=== PATIENT | female | born 1965 | race Caucasian/White ===

== ENCOUNTER 2018-12-03 19:28 | Emergency (ER) | payer OTHER ==
[~2018-12-03] VITALS: Ht 170.2 cm; Wt 117.9 kg
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
[2018-12-03] MEDS ORDERED: ONDANSETRON 4 MG/2 ML VIAL ONE (20:07)
[2018-12-03] MEDS ORDERED: MORPHINE SULFATE 4 MG/1 ML DISP.SYRIN ONE (20:07)
[2018-12-03] MEDS: MORPHINE SULFATE 4 MG/1 ML DISP.SYRIN IM ONE (20:11)
[2018-12-03] MEDS: ONDANSETRON 4 MG/2 ML VIAL IM ONE (20:12)
--- NOTE | 2018-12-03 20:14 | NUR ---
Pt went down to radiology dept for CT scan + xrays.
--- NOTE | 2018-12-03 20:38 | NUR ---
Pt back from radiology dept placed in room 3A appears in no apparent distress.
--- NOTE | 2018-12-03 20:51 | NUR ---
HORACIO ROSE at bedside for update. C-spine precautions cleared by Dr. Browne. Pt able to move all extremities.
[2018-12-03] MEDS ORDERED: ONDANSETRON ODT 4 MG TAB.RAPDIS ONE (22:09)
[2018-12-03] MEDS: ONDANSETRON ODT 4 MG TAB.RAPDIS SL ONE (22:10)
--- NOTE | 2018-12-03 22:30 | NUR ---
Patient discharged to home in stable conditon. Written and verbal after care instructions given. Patient verbalizes understanding of instructions. Pt ambulates out of ER in steady gait. Pt states she has someone to drive her home. Pt states she feels much better.
[2018-12-03 22:44] VITALS: BP 144/88
== END 2018-12-03 22:45 | disposition home or self-care (01) ==
LOC: ER 19:30
DX: S13.4XXA Sprain of ligaments of cervical spine, initial encounter (principal); S33.5XXA Sprain of ligaments of lumbar spine, initial encounter; S20.211A Contusion of right front wall of thorax, initial encounter; V43.52XA Car driver injured in collision with other type car in traffic accident, initial encounter; Y93.89 Activity, other specified; Y92.410 Unspecified street and highway as the place of occurrence of the external cause; Y99.8 Other external cause status
CPT/HCPCS: 71101; 72125; 96372 ×2; 99284; J2270; J2405; A4663; Q0162

== ENCOUNTER 2019-02-11 20:18 | Emergency (ER) | payer OTHER ==
[~2019-02-11] VITALS: Ht 170.2 cm; Wt 108.9 kg
--- NOTE | 2019-02-11 20:32 | NUR ---
Dr. Wilkerson at bedside for MSE.
[2019-02-11] MEDS ORDERED: ONDANSETRON ODT 4 MG TAB.RAPDIS SL ONE (20:45)
[2019-02-11] MEDS ORDERED: IBUPROFEN 600 MG TABLET PO ONE (20:45)
[2019-02-11] MEDS ORDERED: ACETAMINOPHEN 325 MG TABLET PO ONE (20:45)
[2019-02-11] MEDS ORDERED: ONDANSETRON ODT 4 MG TAB.RAPDIS ONE ×2 (20:46→20:47)
[2019-02-11] MEDS ORDERED: ACETAMINOPHEN ES 500 MG TABLET ONE (20:46)
[2019-02-11] MEDS ORDERED: IBUPROFEN 600 MG TABLET ONE (20:47)
--- NOTE | 2019-02-11 22:00 | NUR ---
Patient discharged to home in stable conditon. Written and verbal after care instructions given. Patient verbalizes understanding of instructions. Pt ambulated out of ER with steady gait, no acute signs of distress, VSS, all belongings taken.
[2019-02-11 22:14] VITALS: BP 149/101
== END 2019-02-11 22:14 | disposition home or self-care (01) ==
LOC: ER 20:18
DX: F07.81 Postconcussional syndrome (principal); M54.32 Sciatica, left side; R11.2 Nausea with vomiting, unspecified; R07.89 Other chest pain; V89.2XXA Person injured in unspecified motor-vehicle accident, traffic, initial encounter; Y93.89 Activity, other specified; Y92.89 Other specified places as the place of occurrence of the external cause; Y99.8 Other external cause status
CPT/HCPCS: A4663; A9150; Q0162

== ENCOUNTER 2023-03-30 18:24 | Emergency (ER) | payer MEDICAID, OTHER ==
[~2023-03-30] VITALS: Ht 170.2 cm; Wt 113.4 kg
[2023-03-30] MEDS ORDERED: FLUT16SP16 BNOSTRILS (18:51)
[2023-03-30 19:27] LABS: HEMATOCRIT 38.2 % (31.2-41.9); MEAN CORPUSCULAR HEMOGLOBIN 31.6 uug (24.7-32.8); MEAN CORPUSCULAR VOLUME 91.7 fL (75.5-95.3); PLATELET COUNT (AUTO) 283 K/uL (179-408)
[2023-03-30 19:34] LABS: CREATININE 0.8 mg/dL (0.6-1.3); POTASSIUM 3.8 mmol/L (3.5-5.1)
[2023-03-30 19:47] LABS: BILIRUBIN,TOTAL 0.3 mg/dL (0.2-1.0)
[2023-03-30 19:51] LABS: THYROID STIMULATING HORMONE 2.588 mIU/mL (0.358-3.740)
--- NOTE | 2023-03-30 20:14 | NUR ---
Patient taken to CT via [facility] accompanied by
[2023-03-30 20:15] LABS: *BILIRUBIN,URIN NEGATIVE (NEGATIVE); *CLARITY,URINE CLEAR (CLEAR); *COLOR,URINE YELLOW (YELLOW); *KETONES,URINE NEGATIVE (NEGATIVE); *UROBILINOGEN,URINE 0.2 E.U./dl (NORMAL); LEUKOCYTE ESTERASE ,URINE TRACE (NEGATIVE); NITRITE, URINE NEGATIVE (NEGATIVE); UGLUCOSE NEGATIVE (NEGATIVE)
[2023-03-30 20:24] LABS: *BLOOD, URINE TRACE (NEGATIVE)
[2023-03-30 20:51] LABS: *URINE HCG, QUAL NEG (NEGATIVE)
[2023-03-30] MEDS ORDERED: METOCLOPRAMIDE HCL 10 MG TABLET PO ONE (21:15)
[2023-03-30] MEDS ORDERED: KETOROLAC TROMETHAMINE 60 MG INJ IM ONE (21:15)
[2023-03-30] MEDS ORDERED: ACETAMINOPHEN 325 MG TABLET PO ONE (21:15)
[2023-03-30] MEDS ORDERED: KETOROLAC TROMETHAMINE 30 MG INJ ONE (21:21)
[2023-03-30] MEDS ORDERED: METOCLOPRAMIDE HCL 10 MG TABLET ONE (21:21)
[2023-03-30] MEDS ORDERED: ACETAMINOPHEN 325 MG TABLET ONE (21:21)
[2023-03-30] MEDS ORDERED: diphenhydrAMINE 50 MG/1 ML VIAL IV ONE (22:15)
[2023-03-30] MEDS ORDERED: IV NORMAL SALINE 500 ML BAG IV ONE (22:15)
[2023-03-30] MEDS ORDERED: PROCHLORPERAZINE EDISYLATE 10 MG/2 ML VIAL IV ONE (22:15)
[2023-03-30] MEDS ORDERED: DEXAMETHASONE SOD PHOSPHATE 4 MG INJ IV ONE (22:15)
[2023-03-30] MEDS ORDERED: DEXAMETHASONE SOD PHOSPHATE 4 MG INJ ONE (22:39)
[2023-03-30] MEDS ORDERED: diphenhydrAMINE 50 MG/1 ML VIAL ONE (22:40)
[2023-03-30] MEDS ORDERED: PROCHLORPERAZINE EDISYLATE 10 MG/2 ML VIAL ONE (22:40)
[2023-03-30 22:46] LABS: BACTERIA,URINE FEW /HPF (NONE SEEN); SQUAMOUS EPITHELIAL CELL,UR FEW /HPF (NONE SEEN)
--- NOTE | 2023-03-30 22:51 | NUR ---
Patient resting comfortably in bed, requested food. Patient given 2 turkey sandwhiches. No signs of distress noted.
[2023-03-30] MEDS ORDERED: MAGNESIUM SULFATE/D5W 200 ML ONE (23:14)
[2023-03-30] MEDS: MAGNESIUM SULFATE/D5W 100 ML IV SCH ×2 (23:17→23:48)
--- NOTE | 2023-03-31 01:14 | NUR ---
Patient discharged to home in stable condition. Written and verbal after care instructions given. Patient verbalizes understanding of instructions. Stressed follow up or return to ER for worsening s/s.
[2023-03-31 01:28] VITALS: BP 130/75
== END 2023-03-31 01:28 | disposition home or self-care (01) ==
LOC: ER 18:24
DX: I10 Essential (primary) hypertension (principal); R07.89 Other chest pain; Z88.1 Allergy status to other antibiotic agents; Z79.899 Other long term (current) drug therapy
CPT/HCPCS: 99285; 74176; 96365; 96375; 71045; 96361; 96366; 80053; 81001; 84703; 83880; 84439; 83690; 84443; 85025; 84484; 36415; 93005; 96372; J1100; J1200; J1885; J3475; J0780; J7040; A4663; J8597

== ENCOUNTER 2024-06-03 08:20 | Emergency (ER) | payer MEDICAID ==
[~2024-06-03] VITALS: Ht 170.2 cm; Wt 122.5 kg
[~2024-06-03 08:20] MED LIST: FLUT16SP16 BNOSTRILS
[2024-06-03 09:15] LABS: BASOPHILS % (AUTO) 0.5 % (0.0-2.0); EOSINOPHILS # (AUTO) 0.1 K/uL (0.0-0.7); EOSINOPHILS % (AUTO) 0.9 % (0.0-7.0); HEMATOCRIT 39.5 % (31.2-41.9); HEMOGLOBIN 13.1 g/dL (10.9-14.3); LYMPHOCYTES # (AUTO) 0.4 K/uL (0.8-4.8); LYMPHOCYTES % (AUTO) 7.2 % (20.5-51.5); MEAN CORPUSCULAR HEMOGLOBIN 30.2 uug (24.7-32.8); MEAN CORPUSCULAR HGB CONC 33 g/dL (32.3-35.6); MONOCYTES # (AUTO) 0.4 K/uL (0.1-1.30); NEUTROPHILS # (AUTO) 4.7 K/uL (1.8-8.9); NEUTROPHILS % (AUTO) 84.4 % (38.5-71.5); PLATELET COUNT (AUTO) 334 K/uL (179-408); RED BLOOD CELL COUNT(AUTO) 4.34 MIL/uL (3.63-4.92); RED CELL DISTRIBUTION WIDTH 13.4 % (12.3-17.7); WHITE BLOOD COUNT (AUTO) 5.6 K/uL (3.8-11.8)
[2024-06-03 09:22] LABS: CALCIUM 9.2 mg/dL (8.5-10.1); CARBON DIOXIDE 27 mmol/L (21-32); CHLORIDE 100 mmol/L (98-107); CREATININE 0.8 mg/dL (0.6-1.3); GLUCOSE 112 mg/dL (74-106); POTASSIUM 3.5 mmol/L (3.5-5.1); SODIUM SERUM 135 mmol/L (136-145); UREA NITROGEN, BLOOD 14 mg/dL (7-18)
[2024-06-03 09:30] LABS: DIFFERENTIAL COMMENT 1
[2024-06-03 09:36] LABS: NT-PRO BNP 75 pg/mL (0-125)
[2024-06-03] MEDS ORDERED: GUAI5SYR4 PO (10:07)
[2024-06-03 10:36] VITALS: BP 130/70; TEMP 98; O2SAT 99
== END 2024-06-03 11:06 | disposition home or self-care (01) ==
LOC: ER 08:20
DX: B34.9 Viral infection, unspecified (principal); M79.671 Pain in right foot; Z79.899 Other long term (current) drug therapy; Z60.2 Problems related to living alone; Z88.1 Allergy status to other antibiotic agents
CPT/HCPCS: 36415; 71045; 73620; 83735; 84484; 85025; 93005; A4606; A4663

== ENCOUNTER 2024-12-29 19:05 | Emergency (ER) | payer MEDICAID ==
[~2024-12-29] VITALS: Ht 170.2 cm; Wt 122.5 kg
[~2024-12-29 19:05] MED LIST changes: +GUAI5SYR4 PO
[2024-12-29] MEDS ORDERED: ASPIRIN 81 MG TAB.CHEW ONE (20:22)
[2024-12-29 20:26] LABS: BASOPHILS % (AUTO) 0.3 % (0.0-2.0); EOSINOPHILS # (AUTO) 0.1 K/uL (0.0-0.7); HEMATOCRIT 37.7 % (31.2-41.9); HEMOGLOBIN 12.9 g/dL (10.9-14.3); LYMPHOCYTES # (AUTO) 2.7 K/uL (0.8-4.8); MEAN CORPUSCULAR HEMOGLOBIN 30.7 uug (24.7-32.8); MEAN CORPUSCULAR HGB CONC 34 g/dL (32.3-35.6); MEAN CORPUSCULAR VOLUME 89.6 fL (75.5-95.3); MONOCYTES # (AUTO) 0.5 K/uL (0.1-1.30); MONOCYTES % (AUTO) 5.7 % (0.0-11.0); NEUTROPHILS # (AUTO) 5.9 K/uL (1.8-8.9); PLATELET COUNT (AUTO) 341 K/uL (179-408); RED BLOOD CELL COUNT(AUTO) 4.21 MIL/uL (3.63-4.92); RED CELL DISTRIBUTION WIDTH 13.3 % (12.3-17.7); WHITE BLOOD COUNT (AUTO) 9.2 K/uL (3.8-11.8)
[2024-12-29 20:28] LABS: DIFFERENTIAL COMMENT 1
[2024-12-29] MEDS: ASPIRIN 81 MG TAB.CHEW PO ONE (20:31)
[2024-12-29 20:33] LABS: CALCIUM 9.9 mg/dL (8.5-10.1); CARBON DIOXIDE 27 mmol/L (21-32); CHLORIDE 104 mmol/L (98-107); GLUCOSE 108 mg/dL (74-106); POTASSIUM 3.4 mmol/L (3.5-5.1); SODIUM SERUM 140 mmol/L (136-145); UREA NITROGEN, BLOOD 25 mg/dL (7-18)
[2024-12-29 20:46] LABS: ALANINE AMINOTRANSFERASE 17 U/L (14-59); ALBUMIN 3.4 g/dL (3.4-5.0); ALKALINE PHOSPHATASE 70 U/L (50-136); ASPARTATE AMINOTRANSFERASE 10 U/L (15-37); BILIRUBIN,DIRECT 0.1 mg/dL (0.0-0.2); BILIRUBIN,TOTAL 0.3 mg/dL (0.2-1.0); NT-PRO BNP 81 pg/mL (0-125); TOTAL PROTEIN, SERUM 7.7 g/dL (6.4-8.2)
[2024-12-29 21:49] VITALS: BP 130/88; O2SAT 99
== END 2024-12-29 21:50 | disposition home or self-care (01) ==
LOC: ER 19:05
DX: R07.9 Chest pain, unspecified (principal); M25.511 Pain in right shoulder; R23.2 Flushing; G89.29 Other chronic pain; Z88.1 Allergy status to other antibiotic agents; Z60.2 Problems related to living alone
CPT/HCPCS: 36415; 71045; 84484; 85025; A4606; A4663